=== PATIENT | female | born 1970 | race Caucasian/White ===

== ENCOUNTER 2021-05-17 17:44 | Emergency (ER) | payer BC ==
[~2021-05-17] VITALS: Ht 162.6 cm; Wt 68.2 kg
[2021-05-17 17:51] VITALS: TEMP 98.2
[2021-05-17 19:02] VITALS: BP 130/78; PULSE 76
== END 2021-05-17 19:02 | disposition home or self-care (01) ==
LOC: COL.ER 17:44
DX: S02.612A Fracture of condylar process of left mandible, initial encounter for closed fracture (principal); W01.198A Fall on same level from slipping, tripping and stumbling with subsequent striking against other object, initial encounter; Y92.481 Parking lot as the place of occurrence of the external cause